=== PATIENT | male | born 1965 | race Caucasian/White ===

== ENCOUNTER → 2021-07-25 | Outpatient (CLI) | payer BC ==
[~2021-07-25] MED LIST: METF500
== END ==
LOC: LAB SHORT 11:07 → LAB 11:07
DX: D48.5 Neoplasm of uncertain behavior of skin (principal); D23.62 Other benign neoplasm of skin of left upper limb, including shoulder; D23.5 Other benign neoplasm of skin of trunk; L57.0 Actinic keratosis
CPT/HCPCS: 88305